=== PATIENT | female | born 1980 ===

== ENCOUNTER 2024-05-04 09:47 | Day surgery (SDC) | payer OTHER ==
[2024-05-01 09:04] LABS: PH,URINE 6.5 (5.0-8.0); URINE APPEARANCE Cloudy; URINE BILIRRUBIN Negative (NEGATIVE); URINE COLOR Yellow; URINE GLUCOSE Negative (NEGATIVE); URINE KETONE Negative (NEGATIVE); URINE LEUKOCYTE Negative; URINE NITRATE Negative; URINE PROTEIN Negative (NEGATIVE); URINE UROBILINOGEN 0.2 E.U./dl
[2024-05-01 09:05] VITALS: BP 128/85
[2024-05-01 09:08] LABS: URINE BACTERIA 5502.3 uL (0.0-1933); URINE EPITHELIAL CELLS 50.4 uL (0.0-38.8); URINE RBC 6.8 uL (0.0-20.8); URINE WBC 8.3 uL (0.0-23.2)
[2024-05-01 09:13] LABS: HEMATOCRIT 37.3 % (36.0-45.00); HEMOGLOBIN 12.7 g/dL (12.0-15.00); MEAN CELL VOLUME 85.6 fL (80.00-100.00); MEAN CORPUSCULAR HEMOGLOBIN 29.2 pg (27.00-32.0); MEAN CORPUSCULAR HGB CONC 34.1 g/dl (32.0-36.0); PLATELET COUNT 363 K/uL (150-450); RED BLOOD COUNT 4.36 M/uL (4.00-6.00); RED CELL DISTRIBUTION WIDTH 13.8 % (11.5-14.5)
[2024-05-01 09:28] LABS: URINE CAST 0.15 uL (0.0-1.40)
[2024-05-01 09:29] LABS: URINE BLOOD Trace
[2024-05-01 09:36] LABS: INR 0.95; PARTIAL THROMBOPLASTIN TIME 25.3 SECONDS (22.0-34.0); PROTHROMBIN TIME 10.4 SECONDS (9.0-11.5)
[2024-05-01 10:25] LABS: ALBUMIN 4.1 gm/dL (3.4-5.0); BILIRUBIN TOTAL 0.2 mg/dL (0.3-1.2); CALCIUM 9.3 mg/dL (8.5-10.1); CREATININE SERUM 0.73 mg/dL (0.55-1.02); GFR 85.83; GLOBULINA 3.7 G/DL (2.4-3.5); POTASSIUM 5.57 mEq/L (3.5-5.1); TOTAL PROTEIN 7.8 gm/dL (6.4-8.2); TSH 2.85 uIU/mL (0.358-3.74)
[2024-05-04] MEDS ORDERED: CEFOXITIN SODIUM 2,000 MG VIAL IV ONE (13:42)
[2024-05-04] MEDS ORDERED: POVIDONE-IODINE 118 ML BOTT TOP ONE (14:12)
[2024-05-04] MEDS ORDERED: MORGIDOX100 MG PO (14:32)
[2024-05-04] MEDS ORDERED: NAPR500T14 PO (14:32)
[2024-05-04] MEDS ORDERED: ONDANSETRON HCL 2 MG/ML VIAL ONE (21:04)
== END 2024-05-04 21:25 | disposition home or self-care (01) ==
LOC: CIR.AMB 09:47
PROVIDERS: ATTEND Obstetrics & Gynecology
DX: D25.0 Submucous leiomyoma of uterus (principal); N93.8 Other specified abnormal uterine and vaginal bleeding; N84.0 Polyp of corpus uteri

== ENCOUNTER 2025-07-26 08:40 | Outpatient (CLI) | payer OTHER ==
[~2025-07-26 08:40] MED LIST: MORGIDOX100 MG PO; NAPR500T14 PO
== END 2025-07-26 08:41 | disposition home or self-care (01) ==
LOC: SONOGRAMA 08:40
DX: K29.70 Gastritis, unspecified, without bleeding (principal); R14.0 Abdominal distension (gaseous); E66.01 Morbid (severe) obesity due to excess calories; R05.9 Cough, unspecified; K76.0 Fatty (change of) liver, not elsewhere classified

== ENCOUNTER 2025-08-06 09:27 | Outpatient (CLI) | payer OTHER | END 2025-08-06 09:30 | disposition home or self-care (01) | LOC: MRI 09:27 | PROVIDERS: ATTEND Obstetrics & Gynecology | DX: D25.9 Leiomyoma of uterus, unspecified (principal); N94.5 Secondary dysmenorrhea | CPT/HCPCS: 72196; Q9965 ==